=== PATIENT | female | born 1970 | race Caucasian/White ===

== ENCOUNTER 2018-01-16 11:03 | Emergency (ER) | payer MEDICARE, MEDICAID ==
[~2018-01-16] VITALS: Ht 165.1 cm; Wt 75.0 kg
[2018-01-16 12:09] LABS: BASOPHILS # (AUTO) 0.04 x10^3/uL (0-0.1); BASOPHILS % (AUTO) 1 % (0-1); EOSINOPHILS % (AUTO) 4 % (1-7); LYMPHOCYTES # (AUTO) 2.69 x10^3/uL (1-3.4); LYMPHOCYTES % (AUTO) 33 % (22-44); MD NO; MEAN CORPUSCULAR HEMOGLOBIN 28.7 pg (27.0-34.8); MEAN CORPUSCULAR HGB CONC 33.6 g/dL (32.4-35.8); MEAN CORPUSCULAR VOLUME 85.4 fL (80-100); MEAN PLATELET VOLUME 8.1 fL (7.4-10.4); MONOCYTES # (AUTO) 0.41 x10^3/uL (0.2-0.8); MONOCYTES % (AUTO) 5 % (2-9); NEUTROPHILS # (AUTO) 4.65 x10^3/uL (1.8-6.8); NEUTROPHILS % (AUTO) 57 % (42-75); PLATELET COUNT 336 x10^3/uL (130-400); RED BLOOD COUNT 4.91 x10^6/uL (3.82-5.3); RED CELL DISTRIBUTION WIDTH 21.4 % (9.6-15.2)
[2018-01-16 12:10] LABS: AMPHETAMINE SCREEN, URINE Negative (Negative); BARBITURATE SCREEN, URINE Negative (Negative); BENZODIAZEPINE SCREEN, URINE Negative (Negative); CANNABINOID SCREEN, URINE Negative (Negative); COCAINE SCREEN, URINE Negative (Negative); METHADONE SCREEN, URINE Negative (Negative); OPIATE SCREEN, URINE Negative (Negative)
[2018-01-16 12:21] LABS: SALICYLATE LEVEL 5.8 mg/dL (2.8-20.0)
[2018-01-16 12:28] LABS: ACETAMINOPHEN < 2 mcg/mL (10-30)
[2018-01-16 12:45] LABS: ALANINE AMINOTRANSFERASE 31 U/L (12-78); ANION GAP 10 mmol/L (5-15); CALCIUM 8.7 mg/dL (8.5-10.1); CHLORIDE 107 mmol/L (98-107); CREATININE 0.89 mg/dL (0.55-1.02)
[2018-01-16 12:47] LABS: ALKALINE PHOSPHATASE 85 U/L (45-117); BILIRUBIN,TOTAL 0.2 mg/dL (0.2-1.0); TOTAL PROTEIN 8.4 g/dL (6.4-8.2)
[2018-01-16] MEDS ORDERED: SEROQUEL (19:10)
[2018-01-16] MEDS ORDERED: PROZAC (19:10)
[2018-01-16] MEDS ORDERED: VISTARIL (19:10)
[2018-01-16] MEDS ORDERED: CLONIDINE (19:10)
[2018-01-16] MEDS ORDERED: LAMICTAL (19:10)
[2018-01-16] MEDS ORDERED: LORazepam 1MG TABLET PO ONE (21:00)
[2018-01-16] MEDS ORDERED: LORazepam 1MG TABLET ONE (21:01)
[2018-01-17] MEDS ORDERED: ACETAMINOPHEN 325 MG TABLET PO PRN (01:30)
[2018-01-17 08:54] VITALS: BP 137/83
== END 2018-01-17 13:57 | disposition home or self-care (01) ==
LOC: ED 13:50 → EDIP 01-17 00:21 → UNDOADMOB 01-17 00:21 → ED 01-17 13:57
DX: F31.9 Bipolar disorder, unspecified (principal); F10.220 Alcohol dependence with intoxication, uncomplicated; Z00.00 Encounter for general adult medical examination without abnormal findings; F17.200 Nicotine dependence, unspecified, uncomplicated
CPT/HCPCS: 36415; 80053; 80307; 80329; 84702; 84703; 85025; 99284; G0480

== ENCOUNTER 2018-01-19 06:20 | Emergency (ER) | payer MEDICARE, MEDICAID ==
[~2018-01-19] VITALS: Ht 165.1 cm; Wt 47.0 kg
[~2018-01-19 06:20] MED LIST: CLONIDINE; LAMICTAL; PROZAC; SEROQUEL; VISTARIL
[2018-01-19] MEDS ORDERED: QUET400T4 PO (06:29)
[2018-01-19] MEDS ORDERED: LORazepam 1MG TABLET ONE (06:34)
[2018-01-19 07:00] LABS: BASOPHILS # (AUTO) 0.03 x10^3/uL (0-0.1); BASOPHILS % (AUTO) 0 % (0-1); EOSINOPHILS # (AUTO) 0.08 x10^3/uL (0-0.4); EOSINOPHILS % (AUTO) 1 % (1-7); LYMPHOCYTES # (AUTO) 1.55 x10^3/uL (1-3.4); LYMPHOCYTES % (AUTO) 15 % (22-44); MD NO; MEAN CORPUSCULAR HEMOGLOBIN 29.4 pg (27.0-34.8); MEAN CORPUSCULAR VOLUME 86.5 fL (80-100); MEAN PLATELET VOLUME 7.9 fL (7.4-10.4); MONOCYTES # (AUTO) 0.81 x10^3/uL (0.2-0.8); MONOCYTES % (AUTO) 8 % (2-9); NEUTROPHILS # (AUTO) 7.79 x10^3/uL (1.8-6.8); NEUTROPHILS % (AUTO) 76 % (42-75); PLATELET COUNT 304 x10^3/uL (130-400); RED BLOOD COUNT 4.51 x10^6/uL (3.82-5.3); RED CELL DISTRIBUTION WIDTH 20.9 % (9.6-15.2)
[2018-01-19] MEDS ORDERED: LORazepam 1MG TABLET PO ONE (07:00)
[2018-01-19] MEDS ORDERED: ASPIRIN 81 MG TABLET CHEW PO ONE (07:00)
[2018-01-19 07:07] LABS: ALANINE AMINOTRANSFERASE 23 U/L (12-78); ALBUMIN 3.8 g/dL (3.4-5.0); ANION GAP 10 mmol/L (5-15); CALCIUM 9.3 mg/dL (8.5-10.1); CHLORIDE 103 mmol/L (98-107); CREATININE 0.76 mg/dL (0.55-1.02)
[2018-01-19 07:09] LABS: ALKALINE PHOSPHATASE 82 U/L (45-117); BILIRUBIN,TOTAL 0.4 mg/dL (0.2-1.0); TOTAL PROTEIN 7.9 g/dL (6.4-8.2)
[2018-01-19] MEDS ORDERED: ASPIRIN 81 MG TABLET CHEW ONE (07:19)
[2018-01-19 07:28] LABS: TROPONIN I < 0.015 ng/mL (0.000-0.045)
[2018-01-19 08:04] VITALS: BP 140/90
[2018-01-19] MEDS ORDERED: FLUO40CA9 PO (18:54)
[2018-01-19] MEDS ORDERED: CLON0.1T PO (18:55)
[2018-01-19] MEDS ORDERED: HYDR25CA PO (18:55)
[2018-01-19] MEDS ORDERED: LAMO100T5 PO (18:55)
== END 2018-01-19 08:07 | disposition home or self-care (01) ==
LOC: ED 06:28
DX: R07.2 Precordial pain (principal); F15.180 Other stimulant abuse with stimulant-induced anxiety disorder; F31.9 Bipolar disorder, unspecified; F17.200 Nicotine dependence, unspecified, uncomplicated
CPT/HCPCS: 36415; 71045; 80053; 80307; 84484; 85025; 93005; 99285

== ENCOUNTER 2018-01-19 17:51 | Observation (INO) | payer MEDICARE, MEDICAID ==
[~2018-01-19] VITALS: Ht 167.6 cm; Wt 65.0 kg
[~2018-01-19 17:51] MED LIST changes: +QUET400T4 PO
[2018-01-19] MEDS ORDERED: FLUO40CA9 PO (18:54)
[2018-01-19] MEDS ORDERED: LAMO100T5 PO (18:55)
[2018-01-19] MEDS ORDERED: HYDR25CA PO (18:55)
[2018-01-19] MEDS ORDERED: CLON0.1T PO (18:55)
[2018-01-19 19:05] LABS: BASOPHILS # (AUTO) 0.23 x10^3/uL (0-0.1); BASOPHILS % (AUTO) 3 % (0-1); EOSINOPHILS # (AUTO) 0.24 x10^3/uL (0-0.4); EOSINOPHILS % (AUTO) 3 % (1-7); LYMPHOCYTES # (AUTO) 1.95 x10^3/uL (1-3.4); LYMPHOCYTES % (AUTO) 21 % (22-44); MD NO; MEAN CORPUSCULAR HEMOGLOBIN 29.5 pg (27.0-34.8); MEAN CORPUSCULAR HGB CONC 33.9 g/dL (32.4-35.8); MEAN CORPUSCULAR VOLUME 86.9 fL (80-100); MEAN PLATELET VOLUME 8.2 fL (7.4-10.4); MONOCYTES # (AUTO) 1.25 x10^3/uL (0.2-0.8); MONOCYTES % (AUTO) 14 % (2-9); NEUTROPHILS # (AUTO) 5.42 x10^3/uL (1.8-6.8); NEUTROPHILS % (AUTO) 60 % (42-75); PLATELET COUNT 253 x10^3/uL (130-400); RED BLOOD COUNT 4.11 x10^6/uL (3.82-5.3); RED CELL DISTRIBUTION WIDTH 21.1 % (9.6-15.2)
[2018-01-19 19:15] LABS: ALANINE AMINOTRANSFERASE 21 U/L (12-78); ALBUMIN 3.4 g/dL (3.4-5.0); ANION GAP 9 mmol/L (5-15); CALCIUM 9.1 mg/dL (8.5-10.1); CHLORIDE 104 mmol/L (98-107); CREATININE 0.76 mg/dL (0.55-1.02); SALICYLATE LEVEL 5.6 mg/dL (2.8-20.0)
[2018-01-19 19:17] LABS: ALKALINE PHOSPHATASE 75 U/L (45-117); BILIRUBIN,TOTAL 0.7 mg/dL (0.2-1.0); TOTAL PROTEIN 7.2 g/dL (6.4-8.2)
[2018-01-19 19:22] LABS: AMPHETAMINE SCREEN, URINE Positive (Negative); BARBITURATE SCREEN, URINE Negative (Negative); BENZODIAZEPINE SCREEN, URINE Negative (Negative); CANNABINOID SCREEN, URINE Negative (Negative); COCAINE SCREEN, URINE Negative (Negative); METHADONE SCREEN, URINE Negative (Negative); OPIATE SCREEN, URINE Negative (Negative)
[2018-01-19 19:24] LABS: ACETAMINOPHEN < 2 mcg/mL (10-30)
[2018-01-19 23:05] LABS: HCG UR SG 1.009 (1.003-1.030)
[2018-01-19] MEDS ORDERED: LORazepam 1MG TABLET ONE (23:10)
[2018-01-20] MEDS ORDERED: LORazepam 1MG TABLET PO ONE
[2018-01-20] MEDS ORDERED: QUETIAPINE 100MG TABLET ONE (00:58)
[2018-01-20] MEDS: QUETIAPINE 100MG TABLET PO SCH ×2 (00:59→21:34)
[2018-01-20] MEDS ORDERED: ACETAMINOPHEN 325 MG TABLET PO PRN (01:00)
[2018-01-20] MEDS ORDERED: DOCUSATE 100 MG CAPSULE PO PRN (01:00)
[2018-01-20 08:04] VITALS: BP 123/83
[2018-01-20] MEDS: HYDROXYZINE PAMOATE 25MG CAP PO SCH (08:04)
[2018-01-20] MEDS: LAMOTRIGINE 25 MG TABLET PO SCH ×2 (08:05→21:35)
[2018-01-20] MEDS: FLUOXETINE HCL 20 MG CAPSULE PO SCH (08:05)
[2018-01-20 14:45] VITALS: BP 125/78
[2018-01-20] MEDS: LORazepam 1MG TABLET PO PRN (15:59)
[2018-01-20 19:24] VITALS: BP 115/84
[2018-01-21 07:48] VITALS: BP 119/82
[2018-01-21] MEDS: HYDROXYZINE PAMOATE 25MG CAP PO SCH (08:23)
[2018-01-21] MEDS: LAMOTRIGINE 25 MG TABLET PO SCH (08:23)
[2018-01-21] MEDS: FLUOXETINE HCL 20 MG CAPSULE PO SCH (08:25)
[2018-01-21] MEDS: LORazepam 1MG TABLET PO PRN (10:29)
== END 2018-01-21 14:10 | disposition other institution (70) ==
LOC: ED 18:07 → EDIP 22:39 → 2N 01-20 01:21
PROVIDERS: ADMIT Internal Medicine; ATTEND Internal Medicine
DX: R45.851 Suicidal ideations (principal); F15.10 Other stimulant abuse, uncomplicated; F17.200 Nicotine dependence, unspecified, uncomplicated; F31.9 Bipolar disorder, unspecified; F41.9 Anxiety disorder, unspecified
CPT/HCPCS: 36415; 80053; 80307; 80329; 81025; 85025; 99285; G0378; G0480

== ENCOUNTER 2018-01-21 13:55 | Inpatient (IN) | payer MEDICARE, MEDICAID ==
[~2018-01-21] VITALS: Ht 165.1 cm; Wt 65.4 kg
[~2018-01-21 13:55] MED LIST changes: +CLON0.1T PO; +FLUO40CA9 PO; +HYDR25CA PO; +LAMO100T5 PO
[2018-01-21] MEDS ORDERED: DOCUSATE 100 MG CAPSULE PO PRN (14:30)
[2018-01-21] MEDS ORDERED: POLYETHYLENE GLYCOL 17 GM PACKET PO PRN (14:30)
[2018-01-21] MEDS ORDERED: ONDANSETRON ODT 4 MG PO PRN (14:30)
[2018-01-21] MEDS: LORazepam 0.5MG TABLET PO PRN (15:27)
[2018-01-21] MEDS: NICOTINE 21 MG/24 HR PATCH.TD24 TD SCH (15:28)
[2018-01-21] MEDS ORDERED: PLEASE ENTER HEIGHT AND WEIGHT MC SCH (15:30)
[2018-01-21 16:26] VITALS: BP 112/69
[2018-01-21 19:58] VITALS: BP 114/77
[2018-01-21] MEDS: QUETIAPINE 100MG TABLET PO SCH (20:13)
[2018-01-21] MEDS: LAMOTRIGINE 25 MG TABLET PO SCH (20:13)
[2018-01-22 06:31] LABS: FOLATE LEVEL 12.4 ng/mL (3.1-17.5); FREE T4 (FREE THYROXINE) 0.64 ng/dL (0.76-1.46); LDL/HDL RATIO 0.8 (0.5-3.0); THYROID STIMULATING HORMONE 7.01 mIU/L (0.358-3.740)
[2018-01-22 07:30] VITALS: BP 113/79
[2018-01-22] MEDS: LAMOTRIGINE 25 MG TABLET PO SCH ×2 (08:49→21:51)
[2018-01-22] MEDS: HYDROXYZINE PAMOATE 25MG CAP PO SCH (08:49)
[2018-01-22] MEDS: FLUOXETINE HCL 20 MG CAPSULE PO SCH (08:49)
[2018-01-22] MEDS: ACAMPROSATE 333 MG TABLET.DR PO SCH ×2 (15:30→21:51)
[2018-01-22] MEDS: NICOTINE 21 MG/24 HR PATCH.TD24 TD SCH (15:31)
[2018-01-22] MEDS: LORazepam 0.5MG TABLET PO PRN (17:48)
[2018-01-22 20:22] VITALS: BP 115/76
[2018-01-22] MEDS: QUETIAPINE 100MG TABLET PO SCH (21:51)
[2018-01-23 07:31] VITALS: BP 124/83
[2018-01-23] MEDS: FLUOXETINE HCL 20 MG CAPSULE PO SCH (08:23)
[2018-01-23] MEDS: ACAMPROSATE 333 MG TABLET.DR PO SCH ×3 (08:23→20:07)
[2018-01-23] MEDS: LAMOTRIGINE 25 MG TABLET PO SCH ×2 (08:23→20:07)
[2018-01-23] MEDS: HYDROXYZINE PAMOATE 25MG CAP PO SCH (08:23)
[2018-01-23] MEDS: LORazepam 0.5MG TABLET PO PRN ×2 (13:00→20:07)
[2018-01-23] MEDS: NICOTINE 21 MG/24 HR PATCH.TD24 TD SCH (16:19)
[2018-01-23 19:41] VITALS: BP 121/79
[2018-01-23] MEDS: QUETIAPINE 100MG TABLET PO SCH (20:07)
[2018-01-24 07:33] VITALS: BP 122/82
[2018-01-24] MEDS: FLUOXETINE HCL 20 MG CAPSULE PO SCH (08:43)
[2018-01-24] MEDS: ACAMPROSATE 333 MG TABLET.DR PO SCH ×3 (08:43→20:08)
[2018-01-24] MEDS: HYDROXYZINE PAMOATE 25MG CAP PO SCH (08:44)
[2018-01-24] MEDS: LAMOTRIGINE 25 MG TABLET PO SCH ×2 (08:45→20:08)
[2018-01-24] MEDS: ACETAMINOPHEN 325 MG TABLET PO PRN (09:38)
[2018-01-24] MEDS ORDERED: BUPROPION 100 MG TABLET ONE (12:34)
[2018-01-24] MEDS: BUPROPION SR 150 MG TABLET PO SCH (12:36)
[2018-01-24] MEDS: LORazepam 0.5MG TABLET PO PRN ×2 (14:57→20:07)
[2018-01-24] MEDS: NICOTINE 21 MG/24 HR PATCH.TD24 TD SCH (14:57)
[2018-01-24 19:42] VITALS: BP 111/76
[2018-01-24] MEDS: QUETIAPINE 100MG TABLET PO SCH (20:07)
[2018-01-25 07:30] VITALS: BP 103/71
[2018-01-25] MEDS: ACAMPROSATE 333 MG TABLET.DR PO SCH ×3 (08:27→19:58)
[2018-01-25] MEDS: BUPROPION SR 150 MG TABLET PO SCH (08:28)
[2018-01-25] MEDS: LAMOTRIGINE 25 MG TABLET PO SCH ×2 (08:28→19:58)
[2018-01-25] MEDS: HYDROXYZINE PAMOATE 25MG CAP PO SCH (08:28)
[2018-01-25] MEDS: LORazepam 0.5MG TABLET PO PRN (12:37)
[2018-01-25] MEDS: NICOTINE 21 MG/24 HR PATCH.TD24 TD SCH (15:49)
[2018-01-25 19:26] VITALS: BP 110/76
[2018-01-25] MEDS: QUETIAPINE 100MG TABLET PO SCH (19:59)
[2018-01-26 07:30] VITALS: BP 100/68
[2018-01-26] MEDS: LAMOTRIGINE 25 MG TABLET PO SCH ×2 (08:39→20:03)
[2018-01-26] MEDS: ACAMPROSATE 333 MG TABLET.DR PO SCH ×3 (08:40→20:03)
[2018-01-26] MEDS: HYDROXYZINE PAMOATE 25MG CAP PO SCH (08:40)
[2018-01-26] MEDS: BUPROPION SR 150 MG TABLET PO SCH (08:40)
[2018-01-26] MEDS: LORazepam 0.5MG TABLET PO PRN (14:14)
[2018-01-26] MEDS: NICOTINE 21 MG/24 HR PATCH.TD24 TD SCH (15:58)
[2018-01-26 19:24] VITALS: BP 114/68
[2018-01-26] MEDS: QUETIAPINE 100MG TABLET PO SCH (20:03)
[2018-01-27 07:25] VITALS: BP 96/67
[2018-01-27] MEDS: BUPROPION SR 150 MG TABLET PO SCH (08:33)
[2018-01-27] MEDS: HYDROXYZINE PAMOATE 25MG CAP PO SCH (08:33)
[2018-01-27] MEDS: LAMOTRIGINE 25 MG TABLET PO SCH ×2 (08:35→21:02)
[2018-01-27] MEDS: ACAMPROSATE 333 MG TABLET.DR PO SCH ×3 (08:36→21:00)
[2018-01-27] MEDS: LORazepam 0.5MG TABLET PO PRN (13:37)
[2018-01-27] MEDS: NICOTINE 21 MG/24 HR PATCH.TD24 TD SCH (15:43)
[2018-01-27 19:25] VITALS: BP 102/68
[2018-01-27] MEDS: QUETIAPINE 100MG TABLET PO SCH (21:02)
[2018-01-28 07:55] VITALS: BP 94/65
[2018-01-28] MEDS: HYDROXYZINE PAMOATE 25MG CAP PO SCH (08:36)
[2018-01-28] MEDS: ACAMPROSATE 333 MG TABLET.DR PO SCH ×3 (08:36→21:00)
[2018-01-28] MEDS: LAMOTRIGINE 25 MG TABLET PO SCH ×2 (08:36→21:31)
[2018-01-28] MEDS: BUPROPION SR 150 MG TABLET PO SCH (08:36)
[2018-01-28] MEDS: NICOTINE 21 MG/24 HR PATCH.TD24 TD SCH (08:40)
[2018-01-28] MEDS: LORazepam 0.5MG TABLET PO PRN (12:58)
[2018-01-28 19:22] VITALS: BP 101/56
[2018-01-28] MEDS: QUETIAPINE 100MG TABLET PO SCH (21:31)
[2018-01-29 07:30] VITALS: BP 103/70
[2018-01-29] MEDS: ACAMPROSATE 333 MG TABLET.DR PO SCH ×3 (08:39→21:53)
[2018-01-29] MEDS: BUPROPION SR 150 MG TABLET PO SCH (08:39)
[2018-01-29] MEDS: HYDROXYZINE PAMOATE 25MG CAP PO SCH (08:39)
[2018-01-29] MEDS: NICOTINE 21 MG/24 HR PATCH.TD24 TD SCH (08:39)
[2018-01-29] MEDS: LAMOTRIGINE 25 MG TABLET PO SCH ×2 (08:39→21:53)
[2018-01-29] MEDS: LORazepam 0.5MG TABLET PO PRN ×2 (11:35→17:40)
[2018-01-29] MEDS: ACETAMINOPHEN 325 MG TABLET PO PRN ×2 (11:35→17:40)
[2018-01-29 19:28] VITALS: BP 106/72
[2018-01-29] MEDS: QUETIAPINE 100MG TABLET PO SCH (21:52)
[2018-01-30 07:33] VITALS: BP 107/70
[2018-01-30] MEDS: HYDROXYZINE PAMOATE 25MG CAP PO SCH (09:31)
[2018-01-30] MEDS: BUPROPION SR 150 MG TABLET PO SCH (09:31)
[2018-01-30] MEDS: LAMOTRIGINE 25 MG TABLET PO SCH ×2 (09:31→20:12)
[2018-01-30] MEDS: NICOTINE 21 MG/24 HR PATCH.TD24 TD SCH (09:32)
[2018-01-30] MEDS: ACAMPROSATE 333 MG TABLET.DR PO SCH ×3 (09:32→20:14)
[2018-01-30] MEDS: LORazepam 0.5MG TABLET PO PRN ×2 (12:53→20:12)
[2018-01-30 19:41] VITALS: BP 100/67
[2018-01-30] MEDS: ACETAMINOPHEN 325 MG TABLET PO PRN (20:12)
[2018-01-30] MEDS: BUPROPION SR 100 MG TABLET PO SCH (20:13)
[2018-01-30] MEDS: QUETIAPINE 100MG TABLET PO SCH (20:15)
[2018-01-31 08:30] VITALS: BP 93/67
[2018-01-31] MEDS: LAMOTRIGINE 25 MG TABLET PO SCH ×2 (09:00→19:55)
[2018-01-31] MEDS: HYDROXYZINE PAMOATE 25MG CAP PO SCH (09:00)
[2018-01-31] MEDS: NICOTINE 21 MG/24 HR PATCH.TD24 TD SCH (09:01)
[2018-01-31] MEDS: BUPROPION SR 100 MG TABLET PO SCH (09:01)
[2018-01-31] MEDS: ACAMPROSATE 333 MG TABLET.DR PO SCH ×3 (09:05→19:56)
[2018-01-31] MEDS: LORazepam 0.5MG TABLET PO PRN ×2 (12:02→19:51)
[2018-01-31 19:41] VITALS: BP 107/70
[2018-01-31] MEDS: QUETIAPINE 100MG TABLET PO SCH (19:55)
[2018-02-01 07:22] VITALS: BP 85/56
[2018-02-01] MEDS: BUPROPION SR 100 MG TABLET PO SCH (09:26)
[2018-02-01] MEDS: LAMOTRIGINE 25 MG TABLET PO SCH ×2 (09:26→21:34)
[2018-02-01] MEDS: HYDROXYZINE PAMOATE 25MG CAP PO SCH (09:26)
[2018-02-01] MEDS: ACAMPROSATE 333 MG TABLET.DR PO SCH ×3 (09:27→21:34)
[2018-02-01] MEDS: NICOTINE 21 MG/24 HR PATCH.TD24 TD SCH (09:30)
[2018-02-01] MEDS: LORazepam 0.5MG TABLET PO PRN ×2 (12:45→19:19)
[2018-02-01 19:29] VITALS: BP 101/68
[2018-02-01] MEDS: QUETIAPINE 100MG TABLET PO SCH (21:34)
[2018-02-02 08:04] VITALS: BP 102/69
[2018-02-02] MEDS: ACAMPROSATE 333 MG TABLET.DR PO SCH ×3 (09:10→21:18)
[2018-02-02] MEDS: LAMOTRIGINE 25 MG TABLET PO SCH ×2 (09:11→21:19)
[2018-02-02] MEDS: HYDROXYZINE PAMOATE 25MG CAP PO SCH (09:11)
[2018-02-02] MEDS: NICOTINE 21 MG/24 HR PATCH.TD24 TD SCH (09:11)
[2018-02-02] MEDS: BUPROPION SR 100 MG TABLET PO SCH (09:11)
[2018-02-02] MEDS: LORazepam 0.5MG TABLET PO PRN ×2 (09:25→16:09)
[2018-02-02 20:06] VITALS: BP 104/66
[2018-02-02] MEDS: QUETIAPINE 100MG TABLET PO SCH (21:18)
[2018-02-03 07:43] VITALS: BP 103/66
[2018-02-03] MEDS: LAMOTRIGINE 25 MG TABLET PO SCH ×2 (09:05→19:58)
[2018-02-03] MEDS: ACAMPROSATE 333 MG TABLET.DR PO SCH ×3 (09:05→19:57)
[2018-02-03] MEDS: BUPROPION SR 100 MG TABLET PO SCH (09:05)
[2018-02-03] MEDS: LORazepam 0.5MG TABLET PO PRN ×2 (09:05→15:13)
[2018-02-03] MEDS: NICOTINE 21 MG/24 HR PATCH.TD24 TD SCH (09:05)
[2018-02-03] MEDS: HYDROXYZINE PAMOATE 25MG CAP PO SCH (09:05)
[2018-02-03 19:22] VITALS: BP 94/63
[2018-02-03] MEDS: QUETIAPINE 100MG TABLET PO SCH (19:59)
[2018-02-04 07:26] VITALS: BP 103/66
[2018-02-04] MEDS: HYDROXYZINE PAMOATE 25MG CAP PO SCH (08:43)
[2018-02-04] MEDS: LAMOTRIGINE 25 MG TABLET PO SCH ×2 (08:43→21:43)
[2018-02-04] MEDS: BUPROPION SR 100 MG TABLET PO SCH (08:43)
[2018-02-04] MEDS: ACAMPROSATE 333 MG TABLET.DR PO SCH ×3 (08:43→21:43)
[2018-02-04] MEDS: LORazepam 0.5MG TABLET PO PRN ×2 (08:44→17:40)
[2018-02-04] MEDS: NICOTINE 21 MG/24 HR PATCH.TD24 TD SCH (08:44)
[2018-02-04 19:26] VITALS: BP 96/66
[2018-02-04] MEDS: QUETIAPINE 100MG TABLET PO SCH (21:44)
[2018-02-05 07:38] VITALS: BP 87/62
[2018-02-05] MEDS: ACAMPROSATE 333 MG TABLET.DR PO SCH ×3 (08:41→21:49)
[2018-02-05] MEDS: BUPROPION SR 100 MG TABLET PO SCH (08:42)
[2018-02-05] MEDS: LAMOTRIGINE 25 MG TABLET PO SCH ×2 (08:42→21:49)
[2018-02-05] MEDS: HYDROXYZINE PAMOATE 25MG CAP PO SCH (08:42)
[2018-02-05] MEDS: NICOTINE 21 MG/24 HR PATCH.TD24 TD SCH (08:43)
[2018-02-05] MEDS: LORazepam 0.5MG TABLET PO PRN ×2 (08:43→18:10)
[2018-02-05 19:40] VITALS: BP 103/65
[2018-02-05] MEDS: QUETIAPINE 100MG TABLET PO SCH (21:50)
[2018-02-06 07:30] VITALS: BP 100/67
[2018-02-06] MEDS: ACAMPROSATE 333 MG TABLET.DR PO SCH (08:38)
[2018-02-06] MEDS: HYDROXYZINE PAMOATE 25MG CAP PO SCH (08:38)
[2018-02-06] MEDS: LAMOTRIGINE 25 MG TABLET PO SCH (08:38)
[2018-02-06] MEDS: NICOTINE 21 MG/24 HR PATCH.TD24 TD SCH ×2 (08:39→08:43)
[2018-02-06] MEDS: BUPROPION SR 100 MG TABLET PO SCH (08:39)
[2018-02-06] MEDS: LORazepam 0.5MG TABLET PO PRN (08:39)
[2018-02-06] MEDS ORDERED: LAMO25TA PO (11:51)
[2018-02-06] MEDS ORDERED: BUPR-173 PO (11:51)
[2018-02-06] MEDS ORDERED: ACAM333T7 PO (11:51)
[2018-02-06] MEDS ORDERED: QUET100T PO (11:51)
== END 2018-02-06 13:10 | disposition home or self-care (01) | DRG 885 ==
LOC: 3E 14:26
PROVIDERS: ADMIT Counselor Mental Health; ATTEND Counselor Mental Health
DX: F31.30 Bipolar disorder, current episode depressed, mild or moderate severity, unspecified (principal); R45.851 Suicidal ideations; F41.9 Anxiety disorder, unspecified; F15.10 Other stimulant abuse, uncomplicated; F10.20 Alcohol dependence, uncomplicated; Z87.891 Personal history of nicotine dependence; Z91.14 Patient's other noncompliance with medication regimen; Z79.899 Other long term (current) drug therapy; Z90.49 Acquired absence of other specified parts of digestive tract; Z81.8 Family history of other mental and behavioral disorders
CPT/HCPCS: 36415; 80061; 82140; 82607; 82746; 84439; 84443; 86592; 93005; 92523-GN; Q0177

== ENCOUNTER 2019-04-11 13:58 | Emergency (ER) | payer MEDICARE, MEDICAID ==
[~2019-04-11] VITALS: Ht 165.1 cm; Wt 68.5 kg
[~2019-04-11 13:58] MED LIST changes: +ACAM333T7 PO; +BUPR-173 PO; -CLON0.1T PO; +CLON0.1T22 PO; +LAMO25TA9 PO; +QUET100T PO
[2019-04-11] MEDS ORDERED: CLINDAMYCIN 300 MG CAPSULE PO ONE (14:30)
[2019-04-11] MEDS ORDERED: CLINDAMYCIN 300 MG CAPSULE ONE (15:11)
[2019-04-11] MEDS ORDERED: LIDOCAINE-MPF 1%, 5ML ONE (15:17)
[2019-04-11] MEDS ORDERED: BUPIVACAINE 0.25% ONE (15:20)
[2019-04-11] MEDS ORDERED: DIPH,PERTUSS(ACELL),TET VAC/PF 0.5 ML IM-VACC ONE ×2 (15:38→16:00)
[2019-04-11] MEDS ORDERED: HYDROcodone/APAP 5/325 TABLET ONE (15:58)
[2019-04-11] MEDS ORDERED: BUPIVACAINE 0.25% INFIL ONE (16:00)
[2019-04-11] MEDS ORDERED: HYDROcodone/APAP 5/325 TABLET PO ONE (16:00)
[2019-04-11] MEDS ORDERED: LIDOCAINE-MPF 1%, 5ML INFIL ONE (16:00)
[2019-04-11 16:09] VITALS: BP 174/94
== END 2019-04-11 16:11 | disposition home or self-care (01) ==
LOC: ED 16:05
DX: K08.89 Other specified disorders of teeth and supporting structures (principal); F17.200 Nicotine dependence, unspecified, uncomplicated
CPT/HCPCS: 10060; 90471; 90715; 99284; J3490

== ENCOUNTER 2020-06-20 12:57 | Emergency (ER) | payer MEDICARE, MEDICAID ==
[~2020-06-20] VITALS: Ht 165.1 cm; Wt 70.9 kg
--- NOTE | 2020-06-20 13:37 | NUR ---
TASK RN: PT AMBULATORY TO ROOM 20 W/ C/O FRON LEFT DENTAL PAIN STARTED 2 DAYS AGO. PT HAS APPT W/ DENTIST SUNDAY BUT RATES PAIN 10/10 AND SWELLING INTO [place]. NO SWELLING NOTED. PT RESTING IN CHAIR.
[2020-06-20] MEDS ORDERED: HYDROcodone/APAP 5/325 TABLET ONE (14:15)
[2020-06-20] MEDS ORDERED: HYDROcodone/APAP 5/325 TABLET PO ONE (14:30)
[2020-06-20 14:35] VITALS: BP 148/89
--- NOTE | 2020-06-20 14:35 | NUR ---
DC EDUCATION PROVIDED, PT DEMONSTRATES UNDERSTANDING. PT AMBULATED STEADILY TO DC WITH RN. FRIEND TO TAKE PT HOME.
== END 2020-06-20 14:44 | disposition home or self-care (01) ==
LOC: ED 14:38
DX: K08.89 Other specified disorders of teeth and supporting structures (principal); F17.200 Nicotine dependence, unspecified, uncomplicated
CPT/HCPCS: 99283

== ENCOUNTER 2020-10-28 18:14 | Emergency (ER) | payer MEDICARE, MEDICAID ==
[~2020-10-28] VITALS: Ht 165.1 cm; Wt 70.0 kg
--- NOTE | 2020-10-28 18:23 | NUR ---
PT VARGHESE FROM HOME, PER EMS, CALLED 911 AFTER HE FOUND PT WALKING OUT OF BATHROOM NAKED WITH SELF INFLICTED SUPERFICIAL KNIFE WOUNDS TO WRISTS. PT A&O, RESPS EVEN AND UNLABORED, CALM BUT REFUSING TO GIVE INFORMATION, REFUSING VITAL SIGNS. PER EMS, BEDBUGS IN APARTMENT. PT TO BE DECONNED, FURTHER ASSESSMENT DEFERRED UNTIL AFTER DECONTAMINATION.
--- NOTE | 2020-10-28 18:33 | NUR ---
PT TO DECON SHOWER WITH 2 EDT AT THIS TIME
--- NOTE | 2020-10-28 18:54 | NUR ---
REPORT GIVEN TO GIANCARLO MUÑOZ
--- NOTE | 2020-10-28 19:00 | NUR ---
PRECEPTOR RN NOTE: IN SHOWER, WITH EDT X 2, PT BECAME ANGRY, UNCOOPERATIVE AND RAN OUT OF SHOWER BEFORE DECON COMPLETE. WHEN RN ATTEMPTED TO EDUCATE PT REGARDING IMPORTANCE OF PROPER DECON, PT TOOK OFF GOWN AND BEGAN TO YELL AT RN "DO YOU SEE ANY BUGS ON ME??" PT BACK TO ROOM 2 WITH COMPUTER AIDE. BELONGINGS DOUBLE BAGGED BY EDT. REPORT TO TONI MONDRAGON AT BEDSIDE.
--- NOTE | 2020-10-28 19:13 | NUR ---
PT RESTING ON GURNEY IN ROOM, PT REFUSED TO THOROUGHLY SHOWER FOR DECON PER STAFF AND WAS PLACED BACK INTO SAME ROOM. PT IS CRYING AND HAVING EMOTIONS THAT SWAY FROM COOPERATING AND BEING FRIENDLY WITH STAFF TO CALLING RN A "FUCKING BITCH, YOU DONT GIVE A SHIT ABOUT HELPING ME". PT ANGERED REGARDING SITTER STATING "ARE YOU FUCKING KIDDING ME, SHES FUCKING BLACK THAT PIECE OF SHIT" AND FLIPPING SITTER OFF. RN INFORMED PT THAT THIS WAS INAPPROPRIATE BEHAVIOR AND IS NOT ACCEPTED. PT ALLOWED TO CALL DAUGHTER, NOW RESTING REFUSING TO GET UDS OR SPEAK TO STAFF. PT BELONGINGS DOUBLE BAGGED AND PLACED IN LOCKER, ROOM SECURED, SITTER IN LINE OF SIGHT. TM.
--- NOTE | 2020-10-28 19:36 | NUR ---
PT VERBALIZED RELEASE OF INFORMATION TO DAUGHTER IS OKAY, DAUGHTER AND PT INFORMED VISITORS ARE ALLOWED BUT PT EDUCATED THAT IF BEHAVIOR ESCALATES, VISITORS MAY NOT BE ALLOWED ANY LONGER. PT TALKING TO DAUGHTER ON PHONE AT THIS TIME. NAD, ROOM SECURED, SITTER IN LINE OF SIGHT, WCTM.
--- NOTE | 2020-10-28 20:04 | NUR ---
Patient is resting comfortably in bed. Bed in lowest, rails engaged, call light on lap. ROOM SECURED, SITTER IN LINE OF SIGHT. TM
[2020-10-28 20:14] LABS: BASOPHILS % (AUTO) 1 % (0-1); EOSINOPHILS % (AUTO) 2 % (1-7); LYMPHOCYTES % (AUTO) 41 % (22-44); MEAN CORPUSCULAR HEMOGLOBIN 31.9 pg (27.0-34.8); MEAN CORPUSCULAR HGB CONC 34.4 g/dL (32.4-35.8); MEAN PLATELET VOLUME 7.9 fL (7.4-10.4); MONOCYTES % (AUTO) 7 % (2-9); NEUTROPHILS % (AUTO) 50 % (42-75); PLATELET COUNT 396 x10^3/uL (130-400); RED BLOOD COUNT 4.92 x10^6/uL (3.82-5.3); RED CELL DISTRIBUTION WIDTH 14.6 % (9.6-15.2)
[2020-10-28 20:25] LABS: ALBUMIN 4.2 g/dL (3.4-5.0); ANION GAP 13 mmol/L (5-15); CALCIUM 9.1 mg/dL (8.5-10.1); CHLORIDE 105 mmol/L (98-107); SALICYLATE LEVEL 6.9 mg/dL (2.8-20.0)
[2020-10-28] MEDS ORDERED: DIPH,PERTUSS(ACELL),TET VAC/PF 0.5 ML IM-VACC ONE ×2 (20:30→21:12)
[2020-10-28 20:36] LABS: ALANINE AMINOTRANSFERASE 26 U/L (12-78); ALKALINE PHOSPHATASE 99 U/L (45-117); BILIRUBIN,TOTAL 0.4 mg/dL (0.2-1.0); CREATININE 0.96 mg/dL (0.55-1.02); TOTAL PROTEIN 8.5 g/dL (6.4-8.2)
[2020-10-28 20:45] LABS: AMPHETAMINE SCREEN, URINE Negative (Negative); BARBITURATE SCREEN, URINE Negative (Negative); BENZODIAZEPINE SCREEN, URINE Negative (Negative); CANNABINOID SCREEN, URINE Negative (Negative); COCAINE SCREEN, URINE Negative (Negative); METHADONE SCREEN, URINE Negative (Negative); OPIATE SCREEN, URINE Negative (Negative)
[2020-10-28 20:49] LABS: FREE T4 (FREE THYROXINE) 0.74 ng/dL (0.76-1.46)
--- NOTE | 2020-10-28 21:00 | NUR ---
PT DAUGHTER AT BS TO VISIT. PT PROVIDED SANDWICH FOR COMFORT, NAD, DENIES ADDITIONAL NEEDS AT THIS TIME. PT APOLOGIZING FOR EARLIER BEHAVIOR. MEDICATED PER MARGO MCLEAN. ROOM SECURED, SITTER IN LINE OF SIGHT.
--- NOTE | 2020-10-28 21:59 | NUR ---
PT DAUGHTER STILL AT BS VISITING. PT NAD, REPORTS HEADACHE AND REQUESTING MEDICATION TO HELP HER SLEEP AND FOR LEWIS. WCTM. ROOM SECURED, SITTER IN LINE OF SIGHT.
[2020-10-28] MEDS ORDERED: ACETAMINOPHEN 500 MG TABLET ONE (22:11)
[2020-10-28] MEDS ORDERED: ACETAMINOPHEN 500 MG TABLET PO ONE (22:30)
--- NOTE | 2020-10-28 23:29 | NUR ---
PT DAUGHTER STILL AT BS. NAD, DENIES ADDITIONAL NEEDS. Patient is resting comfortably in bed. Bed in lowest, rails engaged, call light on lap. ROOM SECURED, SITTER IN LINE OF SIGHT. NO CHANGE IN CONDITION. WCTM.
--- NOTE | 2020-10-29 00:47 | NUR ---
Patient is resting comfortably in bed, eyes closed, even and unlabored respirations at this time. Bed in lowest, rails engaged, call light on lap. ROOM SECURED, SITTER IN LINE OF SIGHT. [facility].
--- NOTE | 2020-10-29 01:33 | NUR ---
pt resting on hospital bed, nad, eyes closed, even and unlabored respirations, bed in lowest, lights dimmed for comfort, room secured, sitter in line of sight, wctm.
--- NOTE | 2020-10-29 03:29 | NUR ---
PT RESTING ON HOSPITAL BED UNDER WARM BLANKETS, EYES CLOSED, NAD, APPEARS COMFORTABLE, BED IN LOWEST, ROOM SECURED, SITTER IN LINE OF SIGHT, WCTM. L2K
--- NOTE | 2020-10-29 05:05 | NUR ---
PT RESTING ON HOSPITAL BED, EYES CLOSED, NAD, APPEARS COMFORTABLE, BED IN LOWEST, ROOM SECURED, SITTER IN LINE OF SIGHT, BREAKFAST TRAY ORDERED, WCTM. L2K
--- NOTE | 2020-10-29 06:35 | NUR ---
PT MOVED TO HOSPITAL BED, RESTING COMFORTABLY, NAD, BED IN LOWEST, RAILS ENGAGED, ROOM SECURED, SITTER IN LINE OF SIGHT, WCTM. L2K
--- NOTE | 2020-10-29 06:53 | NUR ---
REPORT TO ARIE MUÑOZ, PT CARE TRANSFERRED AT THIS TIME.
--- NOTE | 2020-10-29 07:13 | NUR ---
PATIENT RESTING IN HOSPITAL BED WITH EYES CLOSED, RESP EVEN AND UNLABORED, SUICIDE PRECAUTIONS IN PLACE, SITTER IN LINE OF SIGHT. BREAKFAST TRAY ORDERED.
--- NOTE | 2020-10-29 07:35 | NUR ---
CALLED [facility] TO NOTIFY THEM OF PT. PER STAFF, THEY WILL REVIEW THE CHART.
[2020-10-29 08:30] VITALS: BP 128/85
--- NOTE | 2020-10-29 08:36 | NUR ---
BREAKFAST TRAY PROVIDED TO PATIENT, PATIENT COOPERATIVE, DENIES SI/HI AT THIS TIME, NO PAIN, VSS, SUICIDE PRECAUTIONS IN PLACE, SITTER IN LINE OF SIGHT.
--- NOTE | 2020-10-29 09:43 | NUR ---
PATIENT RESTING IN HOSPITAL BED, EYES CLOSED, RESP EVEN AND UNLABORED, SUICIDE PRECAUTIONS IN PLACE, SITTER IN LINE OF SIGHT.
--- NOTE | 2020-10-29 10:37 | NUR ---
LUNCH TRAY ORDERED.
--- NOTE | 2020-10-29 11:13 | NUR ---
COVID SWAB COLLECTED AND WALKED TO LAB.
--- NOTE | 2020-10-29 11:24 | NUR ---
PATIENT AMBULATED WITH STEADY GAIT TO USE PHONE TO CALL DAUGHTER, IN LINE OF SIGHT OF BRET AND THIS RN.
--- NOTE | 2020-10-29 12:07 | NUR ---
LUNCH TRAY PROVIDED, NADN, SUICIDE PRECAUTIONS IN PLACE, SITTER IN LINE OF SIGHT, NO FURTHER NEEDS AT THIS TIME. WAITING FOR ACCEPTANCE TO [facility].
--- NOTE | 2020-10-29 12:24 | NUR ---
PATIENT AMBULATED TO BATHROOM WITH STEADY GAIT.
--- NOTE | 2020-10-29 12:29 | NUR ---
REPORT GIVEN TO TONI RANDALL FOR TRANSFER OF PATIENT CARE.
--- NOTE | 2020-10-29 12:44 | NUR ---
PATIENT TRANSFERRED TO U VIA WHEELCHAIR WITH 2 ED TECHS, PATIENT BELONGINGS BAG TAKEN FROM LOCKED CABINET AND UP TO FLOOR WITH PATIENT.
[2020-11-02] MEDS ORDERED: QUET100T PO (17:02)
[2020-11-02] MEDS ORDERED: HYDR50CA2 PO (17:02)
[2020-11-02] MEDS ORDERED: FLUO20CA23 PO (17:02)
[2020-11-02] MEDS ORDERED: TRIH2TAB3 PO (17:02)
== END 2020-10-29 12:45 ==
LOC: ED 10-29 03:49 → EDIP 10-29 04:08 → UNDOADMOB 10-29 04:08 → INTOOBSV 10-29 04:08 → ED 10-29 12:45
DX: R45.851 Suicidal ideations (principal); S51.812A Laceration without foreign body of left forearm, initial encounter; Z20.822 Contact with and (suspected) exposure to COVID-19; F17.210 Nicotine dependence, cigarettes, uncomplicated; X83.8XXA Intentional self-harm by other specified means, initial encounter; Y93.89 Activity, other specified; Y92.89 Other specified places as the place of occurrence of the external cause; Y99.8 Other external cause status
CPT/HCPCS: 36415; 80053; 80299; 80307; 80320; 80329; 84439; 84443; 85025; 87426; 90471; 90715; 99406; G0480

== ENCOUNTER 2020-12-10 07:17 | Emergency (ER) | payer MEDICARE, MEDICAID ==
[~2020-12-10] VITALS: Ht 157.5 cm; Wt 68.0 kg
[~2020-12-10 07:17] MED LIST changes: +FLUO20CA23 PO; +HYDR50CA2 PO; +TRIH2TAB3 PO
[2020-12-10 07:56] LABS: BASOPHILS % (AUTO) 0 % (0-1); EOSINOPHILS % (AUTO) 1 % (1-7); LYMPHOCYTES % (AUTO) 13 % (22-44); MEAN CORPUSCULAR HEMOGLOBIN 32.3 pg (27.0-34.8); MEAN CORPUSCULAR HGB CONC 34.2 g/dL (32.4-35.8); MEAN PLATELET VOLUME 7.8 fL (7.4-10.4); MONOCYTES % (AUTO) 10 % (2-9); NEUTROPHILS % (AUTO) 77 % (42-75); PLATELET COUNT 399 x10^3/uL (130-400); RED CELL DISTRIBUTION WIDTH 14.8 % (9.6-15.2)
[2020-12-10 08:02] LABS: ALANINE AMINOTRANSFERASE 20 U/L (12-78); ALBUMIN 4.2 g/dL (3.4-5.0); ANION GAP 16 mmol/L (5-15); CALCIUM 9.8 mg/dL (8.5-10.1); CHLORIDE 105 mmol/L (98-107); CREATININE 1.22 mg/dL (0.55-1.02)
[2020-12-10 08:04] LABS: ALKALINE PHOSPHATASE 88 U/L (45-117); TOTAL PROTEIN 8.4 g/dL (6.4-8.2)
--- NOTE | 2020-12-10 09:00 | NUR ---
PT BIB EMS FOR BINGE DRINKING W N/V. PT HAD A BOX O WINE. TREMULOUS, N/V. NO CP OR SOB. PT ON MONITOR
[2020-12-10 09:54] VITALS: BP 132/85
--- NOTE | 2020-12-10 10:33 | NUR ---
PT AMBULATED TO USE THE PHONE
[2020-12-10] MEDS ORDERED: SODIUM CHLORIDE 0.9% 1,000ML IVBOLUS ONE (11:00)
--- NOTE | 2020-12-10 12:20 | NUR ---
PT RESTING, IVF COMPELTE. RECHECKING LAB VALUES
[2020-12-10 12:33] LABS: ALBUMIN 3.6 g/dL (3.4-5.0); ANION GAP 14 mmol/L (5-15); CALCIUM 8.5 mg/dL (8.5-10.1); CHLORIDE 107 mmol/L (98-107); CREATININE 0.97 mg/dL (0.55-1.02)
== END 2020-12-10 13:40 | disposition home or self-care (01) ==
LOC: ED 10:05
DX: E86.0 Dehydration (principal); R11.0 Nausea; D72.829 Elevated white blood cell count, unspecified; F10.10 Alcohol abuse, uncomplicated; Z72.9 Problem related to lifestyle, unspecified; Y90.0 Blood alcohol level of less than 20 mg/100 ml
CPT/HCPCS: 36415; 80048; 80053; 82040; 83690; 85025; 93005; 96360; 96361; 99284; J7030